=== PATIENT | male | born 1990 | race Caucasian/White ===

== ENCOUNTER → 2019-10-10 08:32 | Outpatient (CLI) | payer OTHER, SELFPAY ==
[2019-10-10 09:17] LABS: Influenza A - CEPHEID Flu A NEGATIVE (NEGATIVE); Influenza B - CEPHEID Flu B NEGATIVE (NEGATIVE)
== END ==
PROVIDERS: Visit Provider Physician Assistant
DX: R68.89 Other general symptoms and signs (principal)
CPT/HCPCS: 87502

== ENCOUNTER → 2020-11-26 15:48 | Outpatient (CLI) | payer OTHER, SELFPAY ==
--- NOTE | 2020-11-26 15:52 | DI.RAD.S_ITS ---
PROCEDURE: XR FOOT RT MIN 3V INDICATIONS: fall/jump from 5 ft, calcaneal pain TECHNIQUE: 3 views of the foot were acquired. COMPARISON: None. FINDINGS: Bones: No fractures or dislocations. No suspicious bony lesions. Soft tissues: No tibiotalar joint effusion. Achilles tendon appears normal. IMPRESSION: Normal for age, source of current pain after trauma symptoms is not seen. Dictated by: Tyson Springer M.D. on 11/26/2020 at 16:25 Approved by: Tyson Springer M.D. on 11/26/2020 at 16:25
== END ==
PROVIDERS: Referring Provider Student in an Organized Health Care Education/Training Program; Visit Provider Student in an Organized Health Care Education/Training Program
DX: M79.671 Pain in right foot (principal)
CPT/HCPCS: 73630